=== PATIENT | female | born 1935 | race Caucasian/White ===

== ENCOUNTER → 2016-11-30 | Outpatient (CLI) | payer MEDICARE, OTHER ==
[~2016-11-30] MED LIST: ROPIVACAINE 1% 10 MG/ML (NAROPIN) 20 ML AMPUL ONE; SODIUM CHLORIDE VIAL (PF) 10 ML IV ONE; methylPREDNISolone 80 MG/ML (DEPO MEDROL) VIAL IM ONE
== END ==
LOC: PMC 12:28
PROVIDERS: ATTEND Family Medicine
PROC: 3E0U33Z Introduction of Anti-inflammatory into Joints, Percutaneous Approach (ICD-10-PCS; principal; 2016-11-30)
DX: M53.3 Sacrococcygeal disorders, not elsewhere classified (principal)

== ENCOUNTER → 2017-02-21 | Outpatient (CLI) | payer MEDICARE, OTHER ==
[~2017-02-21] MED LIST changes: +ROPIVACAINE 1% 10 MG/ML (NAROPIN) 10 ML AMPUL ONE; -ROPIVACAINE 1% 10 MG/ML (NAROPIN) 20 ML AMPUL ONE
--- NOTE | 2017-02-22 08:49 | PAIN MANAGEMENT ---
Date of note: 02/21/2017 Procedure: Left SI joint injection with fluoroscopy. Total fluoroscopic time 22 seconds. This is an 81-year-old female patient under the care of Madeline Juares MD. The patient is not new to our services. She has been seen by [facility] where she has received SI joint injections in the past for left SI joint pain. the patient has gotten good results from that and comes back in today in quite a bit of pain over that SI joint space and wants to do another update injection. Informed consent was obtained for that injection. The patient's pain radiates across the hip and down the outside of the leg and into the knee where she says that is where her worse pain is, in the knee. The patient was taken to the operating room for the use of fluoroscopic guidance for needle tip placement. She is placed in the prone position. Aseptic technique was utilized. The skin was localized with a 27-gauge needle and 5 mL of 1% lidocaine plain. After localization, a 22-gauge spinal needle was then advanced into the left SI joint space. Omnipaque 240 for a total of 0.25 mL was injected with no vascular uptake. Medicines injected were Depo-Medrol 80 mg and ropivacaine 0.2% and normal saline for a total of 10 mL injected. The needle was removed. A 2 x 2 and paper tape were placed over the site. The patient was turned the sitting position where she remained for approximately 10 minutes. She is released with vital signs stable and faculties intact. She is escorted to the exit per [facility] RN. She is asked to follow up with me via my cell phone in 3 days. The patient states she understands the discharge instructions and I will follow her from there.
== END ==
LOC: EDSTATUS 14:00 → PMC 14:07
PROVIDERS: ATTEND Family Medicine
DX: M53.3 Sacrococcygeal disorders, not elsewhere classified (principal)
CPT/HCPCS: G0260; J1040; J2795; J7050

== ENCOUNTER → 2017-03-15 | Outpatient (CLI) | payer MEDICARE, OTHER ==
[~2017-03-15] MED LIST changes: -ROPIVACAINE 1% 10 MG/ML (NAROPIN) 10 ML AMPUL ONE; -SODIUM CHLORIDE VIAL (PF) 10 ML IV ONE
--- NOTE | 2017-03-16 08:51 | PAIN MANAGEMENT ---
Date of note: 03/15/2017 Procedure: Lumbar epidural steroid injection with fluoroscopic guidance Total fluoroscopic exposure time: 21 seconds This is an 81-year-old female patient under the care of Madeline Juares MD. The patient was referred to anesthesia, initially, for the purpose of a right SI joint injection. Upon presentation the patient describes her pain as originating form her hip. It travels down the outside of her leg, crosses the front of the leg at the knee and continues down into the shins and into the ankles. This appears radicular in nature to me. I discussed this with the patient and she states this pain is different than what she has had on the other side where we have done previous SI joint injections. Her physician was contacted through her nurse. The nurse spoke to physician and received orders that it was okay from Dr. Juares to proceed forward with an L4-5 epidural steroid injection. This was discussed with the patient and she wishes to proceed forward with an L4-5 epidural steroid injection. Informed consent was obtained and she was taken to the operating room for the use of fluoroscopic guidance for needle tip placement. She was placed in the left lateral decubitus. Orders for procedure verified. Patient denies any bleeding tendencies. After informed consent obtained, the patient was positioned for the procedure. The area was prepped and draped using aseptic technique. The skin and overlying tissues were localized using 3 mL of 1% Preservative-Free lidocaine using a 25-gauge 1.5-inch needle. A 20-gauge Tuohy needle was advanced, using "loss of resistance" technique, to the epidural space. No blood, cerebral spinal fluid, pain, or paresthesia noted on entry of the epidural space. A 1 mL solution of Depo-Medrol 80 mg was injected slowly without mass volume effect. The needle was then removed and the patient was turned to the sitting position where she remained for approximately 5 minutes. She was then able to stand with good leg strength and walk under escort to the door where she was released with vital signs stable and faculties intact. She is asked to follow up with me via my cellphone in approximately 3 days. The patient states she understands these discharge instructions and I will follow her from there.
== END ==
LOC: PMC 11:36
PROVIDERS: ATTEND Family Medicine
PROC: 3E0S33Z Introduction of Anti-inflammatory into Epidural Space, Percutaneous Approach (ICD-10-PCS; principal; 2017-03-15)
DX: M54.18 Radiculopathy, sacral and sacrococcygeal region (principal)